=== PATIENT | male | born 1935 | race Caucasian/White ===

== ENCOUNTER 2017-06-04 22:42 | Emergency (ER) | payer OTHER ==
[~2017-06-04] VITALS: Ht 175.3 cm; Wt 90.7 kg
[~2017-06-04 22:42] MED LIST: ACETAMINOPHEN-1 EAC1 PO; AMOXICILLIN500 M1 PO; ASA5UEC PO; AZITHROMYCIN 2250 MG PO; BAYER CHEWABLE81 MG PO; CIPRO HC OTIC S10 ML OTIC; COLACE100 MG PO; FINASTERIDE5 MG PO; FLOMAX0.4 MG PO; IBUPROFEN 800800 M1 PO; LASIX 20 MG TAB20 MG; LISINOPRIL20 MG PO; LOPRESSOR50 MG PO; MELATONIN3 MG PO; NIACIN500 MG PO; NORVASC5 MG; OMEPRAZOLE 20 M20 M1; OMEPRAZOLE 20 M20 M1 PO; PREDNISONE 20 M20 M1 PO; PROAIR RESPICL90 MCG IH; TOPROL XL50 MG PO; TURMERIC500 MG PO; VENTOLIN HFA 1818 GM INH; VITAMIN D-32000 UNIT PO; ZOCOR40 MG PO
[2017-06-04 23:21] LABS: ABSOLUTE EOSINOPHILS 0.2 thou/uL (0.0-0.7); ABSOLUTE LYMPHOCYTES 1.2 thou/uL (0.8-5.3); ABSOLUTE MONOCYTES 0.5 thou/uL (0.0-1.2); ABSOLUTE NEUTROPHILS 6.9 thou/uL (1.6-8.1); BASOPHILS 0.5 %; EOSINOPHILS 2.1 %; HEMATOCRIT 40.3 % (42.0-52.0); HEMOGLOBIN 13.2 gm/dL (14.0-18.0); LYMPHOCYTES 13.6 %; MCH 27.9 pg (26.0-34.0); MCHC 32.7 g/dL (28.0-37.0); MCV 85.2 fL (80.0-100.0); MONOCYTES 6.1 %; MPV 8.9 fl. (7.2-11.1); NUCLEATED RBCS 0 /100WBC; PLATELET COUNT* 154 thou/uL (150-400); POLYS 77.7 %; RBC 4.73 mil/uL (4.50-6.00); RDW-CV 15.6 % (10.5-14.5); WBC 8.8 thou/uL (4.0-11.0)
[2017-06-04 23:43] LABS: CALCIUM 8.6 mg/dL (8.5-10.1); CREATININE 1.1 mg/dL (0.6-1.3); POTASSIUM 3.9 mmol/L (3.5-5.1)
[2017-06-04 23:44] LABS: INR 1.1; PROTIME 10.5 Seconds (9.20-11.50)
[2017-06-04 23:48] LABS: ALBUMIN 3.9 g/dL (3.4-5.0); TOTAL BILIRUBIN 0.3 mg/dL (<0.1-1.0); TOTAL PROTEIN 6.3 g/dL (6.4-8.2)
[2017-06-05] MEDS ORDERED: FLAGYL500 MG PO (01:19)
[2017-06-05] MEDS ORDERED: HYDROCODONE-AP1 EAC6 PO (01:19)
[2017-06-05] MEDS ORDERED: CIPROFLOXACIN500 M1 PO (01:19)
[2017-06-05] MEDS ORDERED: ZOFRAN ODT4 MG PO (01:19)
[2017-06-05 01:43] VITALS: BP 169/79
--- NOTE | 2017-06-05 18:07 | EKG ---
[place] [address] ELECTROCARDIOGRAM REPORT Name: TONI SCHREIBER [id number] Admission: 06/04/17 Attend Phys: Discharge: 06/05/17 Date of : 35 Report #: [id number] THIS REPORT FOR: //name// [facility] ED Test Date: 2017-06-04 Test Time: 22:55:26 Pat Name: TONI SCHREIBER Department: Room: Gender: Junior Network Engineer: ZAID Oconnor : 1935 Requested By: Adalgisa Douglas Order Number: [id number] MD: Dmitri Quan Measurements Intervals [place] Rate: 69 P: 39 CT: 155 QRS: 258 QRSD: 156 T: 86 QT: 427 QTc: 458 Interpretive Statements Atrial-sensed ventricular-paced complexes; rare pvc's No further analysis attempted due to paced rhythm Compared to ECG 06/08/2016 09:44:59 No significant changes Electronically Signed On 06-05-2017 18:07:45 CDT by Dmitri Quan [email or web address] <ELECTRONICALLY SIGNED> By: Dmitri Quan MD, [facility] 06/05/17 1807 2255 2255 Dmitri Quan MD, [facility] /EPI
--- NOTE | 2017-06-05 18:08 | EKG ---
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 Oconnor : 1935 Requested By: Adalgisa Douglas Order Number: [id number] MD: Dmitri Quan Measurements Intervals [place] Rate: 62 P: 155 MS: 203 QRS: 251 QRSD: 193 T: 76 QT: 483 QTc: 491 Interpretive Statements A-V dual-paced complexes No further analysis attempted due to paced rhythm Compared to ECG 06/08/2016 09:44:59 No significant changes Electronically Signed On 06-05-2017 18:08:29 CDT by Dmitri Quan [email or web address] <ELECTRONICALLY SIGNED> By: Dmitri Quan MD, [facility] 06/05/17 1808 31 31 Dmitri Quan MD, FAC /EPI
== END 2017-06-05 01:48 | disposition home or self-care (01) ==
LOC: M.ERS 22:42
PROVIDERS: Emergency Medicine
DX: K52.9 Noninfective gastroenteritis and colitis, unspecified (principal); F10.99 Alcohol use, unspecified with unspecified alcohol-induced disorder; I10 Essential (primary) hypertension; Z87.891 Personal history of nicotine dependence; Z88.8 Allergy status to other drugs, medicaments and biological substances; Z95.0 Presence of cardiac pacemaker; Z98.890 Other specified postprocedural states

== ENCOUNTER 2017-10-12 11:42 | Observation (INO) | payer OTHER ==
[~2017-10-12] VITALS: Ht 175.3 cm; Wt 89.8 kg
[~2017-10-12 11:42] MED LIST changes: +CIPROFLOXACIN500 M1 PO; +FLAGYL500 MG PO; +HYDROCODONE-AP1 EAC6 PO; +ZOFRAN ODT4 MG PO
[2017-10-12 11:50] VITALS: BP 141/74
[2017-10-12] MEDS ORDERED: IBUPROFEN 800800 M1 PO (12:02)
[2017-10-12] MEDS ORDERED: LASIX 20 MG TAB20 MG PO (12:02)
[2017-10-12] MEDS ORDERED: FLONASE 0.05%50 MCG NASAL (12:03)
[2017-10-12] MEDS ORDERED: PROBIOTIC1 EAC1 PO (12:03)
[2017-10-12 12:22] LABS: HEMATOCRIT 40.9 % (42.0-52.0); HEMOGLOBIN 13.2 gm/dL (14.0-18.0); MCH 27.6 pg (26.0-34.0); MCHC 32.3 g/dL (28.0-37.0); MCV 85.4 fL (80.0-100.0); MPV 8.7 fl. (7.2-11.1); NUCLEATED RBCS 0 /100WBC; PLATELET COUNT* 151 thou/uL (150-400); RBC 4.79 mil/uL (4.50-6.00); RDW-CV 15.9 % (10.5-14.5); WBC 5.5 thou/uL (4.0-11.0)
[2017-10-12 12:26] LABS: ANION GAP 6 mmol/L (7-16); BUN 17 mg/dL (7-18); CHLORIDE 103 mmol/L (98-107); CO2 26 mmol/L (21-32); CREATININE 1.3 mg/dL (0.6-1.3); GLUCOSE 117 mg/dL (70-99); POTASSIUM 4.3 mmol/L (3.5-5.1); SODIUM 135 mmol/L (136-145)
[2017-10-12 12:28] LABS: APTT 25.6 Seconds (25.0-31.3); INR 1.1; PROTIME 10.7 Seconds (9.20-11.50)
[2017-10-12 12:33] LABS: ALBUMIN 3.7 g/dL (3.4-5.0); ALKALINE PHOSPHATASE 86 U/L (46-116); LIPASE 142 U/L (73-393); SGOT 21 U/L (15-37); SGPT 22 U/L (30-65); TOTAL BILIRUBIN 0.7 mg/dL (<0.1-1.0); TOTAL PROTEIN 6.5 g/dL (6.4-8.2); TROPONIN-I LEVEL <0.06 ng/mL (<0.06)
[2017-10-12 13:06] LABS: ABSOLUTE EOSINOPHILS 0.1 thou/uL (0.0-0.7); ABSOLUTE LYMPHOCYTES 1.1 thou/uL (0.8-5.3); ABSOLUTE MONOCYTES 0.3 thou/uL (0.0-1.2); PLATELET ESTIMATE ADEQUATE
[2017-10-12 13:47] LABS: URINE BILIRUBIN NEGATIVE (Negative); URINE BLOOD NEGATIVE (Negative); URINE CLARITY CLEAR; URINE COLOR YELLOW; URINE GLUCOSE-RANDOM NEGATIVE (Negative); URINE KETONES NEGATIVE (Negative); URINE LEUKOCYTES-REFLEX NEGATIVE (Negative); URINE NITRITE-REFLEX NEGATIVE (Negative); URINE PROTEIN NEGATIVE (Negative); URINE SPECIFIC GRAVITY 1.015 (1.005-1.030); URINE UROBILINOGEN 0.2 E.U./dl (0.2-1.0)
--- NOTE | 2017-10-12 14:33 | NUR ---
REPORT GIVEN TO AIDEN, WILL TRANSFER PT TO FLOOR
[2017-10-12 14:42] VITALS: BP 147/67
--- NOTE | 2017-10-12 16:44 | EKG ---
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: : 1935 Requested By: Cy Dacosta Order Number: [id number] MD: Ok Baumann Measurements Intervals [place] Rate: 68 P: 144 DC: 124 QRS: -49 QRSD: 199 T: 143 QT: 491 QTc: 523 Interpretive Statements Ventricular-paced complexes No further analysis attempted due to paced rhythm Compared to ECG 06/04/2017 23:32:31 pvc no longer noted Electronically Signed On 10-12-2017 16:44:38 CDT by Ok Baumann [email or web address] <ELECTRONICALLY SIGNED> By: Ok Baumann MD, [facility] 10/12/17 1644 1203 1203 Ok Baumann MD, [facility] /EPI
--- NOTE | 2017-10-12 19:39 | NUR ---
PT ARRIVED TO ROOM 204 AT APPROX 1450, ORIENTED TO ROOM AND STAFF. ADMISSION HX AND ASSESMENT DONE CHARTED. VSS, SR/BBB ON THE MONITOR. PT SPOKE TO DR LALA, NO NEW ORDERS AT THIS TIME. HOME MEDS ORDERED. PT INSTRUCTED TO CALL STAFF FOR HELP AMBULATING DUE TO RECENT FALL. PT VERBALIZED UNDERSTANDING. REPORT GIVEN TO ONCOMING RN, JENNIFER
[2017-10-12 20:00] VITALS: BP 136/70
[2017-10-12 23:45] VITALS: BP 131/71
[2017-10-13 04:00] VITALS: BP 155/84
--- NOTE | 2017-10-13 04:46 | NUR ---
ASSUMED PT CARE AT 1930, PT IS A&0X4, PT IS TRACING NSR BBB ON THE MONITOR, ON RA SATTING MID TO HIGH 90'S. PT DENIES ANY PAIN OR NEEDS AT THIS TIME. PT IS UP STB TO THE BR. BED IN LOW POSITION, CALL LIGHT IN REACH, BED IN LOW POSITION, CALL LIGHT IN REACH, BED ALARM ON, YELLOW ARM BAND AND SOCKS IN PLACE. HOURLY ROUNDING COMPLETED FOR PT SAFETY.
[2017-10-13 08:00] VITALS: BP 143/63
[2017-10-13 11:42] VITALS: BP 143/63
--- NOTE | 2017-10-13 12:42 | NUR ---
DISCHARGE NOTE - IV REMOVED. NO PROBLEMS. BELONGINGS SENT WITH PT. NO QUESTIONS REGARDING DISCHARGE PAPERS. PRESENT AT BEDSIDE.
--- NOTE | 2017-11-02 10:49 | CON ---
[address] [address] CONSULTATION Name: TONI SCHREIBER Room: [address] Isaac Martínez#: [id number] Admission: 10/12/17 Attend Phys: Pino Richards Discharge: 10/13/17 Date of : 35 Report #: [id number] THIS REPORT FOR: //name// CC: Aly Lorenzo DATE OF SERVICE: 10/12/2017 PRIMARY PRODUCT DESIGN MANAGER: Ok Baumann MD, [facility]. REASON FOR CONSULTATION: Syncope. PRIMARY CARE PHYSICIAN: Aly Cota MD. HISTORY OF PRESENT ILLNESS: The patient is an 82-year-old man with history of coronary artery disease and pacemaker, was at [facility] and he had been having some bowel issues over the last week or so and had been on a laxative. He apparently had 2 loose stools at [facility] and after the 2nd one, he became diaphoretic, hot, sweaty, possibly nauseous to throw up, but did not. He then fell down and did not hit his head. He had briefly lost his consciousness. By the time he got to the Emergency Room, he was feeling fine. He presents in a sinus rhythm. He does have a conduction abnormality. He has some occasional flutter sensation on his left chest, which occurs at rest, nonexertional. He has chronic shortness of breath and he is going to be evaluated with an outpatient stress test, which was ordered by our nurse practitioner earlier this week when she has seen him for a routine followup visit. He presents with stable hemodynamics. There were no changes to his blood pressure medications. He had been on [id number]-[id number] laxatives. He recently had an endoscopy, which was apparently unremarkable. PAST MEDICAL HISTORY: He has a history of prior bypass; permanent pacemaker; hypertension; hyperlipidemia; carotid artery disease, nonobstructive; bladder cancer. HOME MEDICATIONS: Include amlodipine 5 mg, aspirin, Colace 200 mg daily, Proscar 5 mg daily, Flonase inhaler, Prinivil 40 mg daily, metoprolol 50 mg p.o. b.i.d., Prilosec 40 mg daily, Zocor 40 mg daily, and tamsulosin 0.4 mg daily. SOCIAL HISTORY: He is nonsmoker. [place] [address] CONSULTATION Name: TONI SCHREIBER Room: [address] Isaac Martínez#: [id number] Admission: 10/12/17 Attend Phys: Pino Richards Discharge: 10/13/17 Date of : 35 Report #: [id number] PAST SURGICAL HISTORY: No recent surgeries. His bypass surgery was in 2002. FAMILY HISTORY: Positive for heart disease. ALLERGIES: HE HAS ALLERGIES TO NITROGLYCERIN, TERAZOSIN, AND VERAPAMIL. REVIEW OF SYSTEMS: GENERAL: No fevers or chills. PULMONARY: No wheezing or cough. CARDIOVASCULAR: No chest pain, no palpitations, no orthopnea, no PND. SKIN: No rashes. HEMATOLOGIC: No anemia or bleeding disorders. RENAL: No history of kidney failure. PHYSICAL EXAMINATION: VITAL SIGNS: Blood pressure is 147/67, pulse is 66, temperature is 36.4, weight is 91.6 kg. GENERAL: This is a pleasant, moderately obese, elderly male. He is pleasant, in no apparent distress, sitting on the edge of the bed. HEENT: Face: There is no facial asymmetry. Eyes: EOMs intact, no scleral icterus. NECK: Supple. There is no jugular venous distention. Upstrokes are normal. I cannot hear bruits. CARDIOVASCULAR: Regular. I cannot hear a murmur. LUNGS: Clear to auscultation bilaterally. ABDOMEN: Soft, nontender, nondistended. EXTREMITIES: No peripheral edema. LABORATORY DATA: Carotid Dopplers on 08/31/2016 showed no evidence of flow limiting stenosis in either carotid artery. Electrocardiogram shows a sinus rhythm, V paced. Hemoglobin is 13.2, white blood cell count 5.5, platelet count is 151,000. Sodium is 135, potassium is 4.3, BUN is 17, creatinine is 1.3. Troponin I is 0.06. BNP is 407. IMAGING: CT scan of the brain shows no acute process. IMPRESSION: 1. Syncopal episode. I suspect this is vasovagal based on the historical data. He presents hemodynamically stable with stable telemetry. We will continue with current medical therapy. I suspect this was similar to a micturition syncope type etiology. I do not see the need to alter his medical therapy. 2. Permanent pacemaker. His telemetry seems to be stable. We will continue telemetry monitoring overnight. 3. Coronary artery disease. His symptoms are atypical for angina. He is scheduled for an outpatient nuclear stress test. I do not see the need for him to stay in the hospital for this. [address] [address] CONSULTATION Name: TONI SCHREIBER Room: [address] Isaac Martínez#: [id number] Admission: 10/12/17 Attend Phys: Pino Richards Discharge: 10/13/17 Date of : 35 Report #: [id number] 4. Hypertension. We will continue to monitor his blood pressure closely. 5. Status post coronary artery bypass grafting as noted above. We will continue current medical therapy. We will check serial cardiac troponins. Initial one is normal. <ELECTRONICALLY SIGNED> By: Rommel Reid MD, FACC 11/02/17 1049 1619 1842Rommel Reid MD, FACC /nt
== END 2017-10-13 12:40 | disposition home or self-care (01) ==
LOC: M.ERS 11:42 → M.2W 13:19 → M.TBA-ER 13:19 → M.2W 15:09
PROVIDERS: Emergency Medicine; ADMIT Internal Medicine
DX: S40.811A Abrasion of right upper arm, initial encounter (principal); R55 Syncope and collapse; I25.10 Atherosclerotic heart disease of native coronary artery without angina pectoris; I10 Essential (primary) hypertension; I25.2 Old myocardial infarction; W18.39XA Other fall on same level, initial encounter; Y93.89 Activity, other specified; Y92.89 Other specified places as the place of occurrence of the external cause; Y99.8 Other external cause status; Z95.5 Presence of coronary angioplasty implant and graft; Z95.0 Presence of cardiac pacemaker; Z98.890 Other specified postprocedural states; Z90.49 Acquired absence of other specified parts of digestive tract

== ENCOUNTER → 2017-12-26 | Outpatient (CLI) | payer OTHER ==
[~2017-12-26] MED LIST changes: +FLONASE 0.05%50 MCG NASAL; +LASIX 20 MG TAB20 MG PO; +PROBIOTIC1 EAC1 PO
[2017-12-26 15:41] LABS: CALCIUM 9.2 mg/dL (8.5-10.1); CREATININE 1.2 mg/dL (0.6-1.3); POTASSIUM 4.6 mmol/L (3.5-5.1)
== END ==
LOC: M.LAB 14:58
PROVIDERS: Nurse Practitioner
DX: I25.5 Ischemic cardiomyopathy (principal); R53.83 Other fatigue; I10 Essential (primary) hypertension; Z87.891 Personal history of nicotine dependence

== ENCOUNTER → 2018-01-03 | Outpatient (CLI) | payer OTHER ==
[2018-01-03 09:29] LABS: CALCIUM 8.9 mg/dL (8.5-10.1); POTASSIUM 4.3 mmol/L (3.5-5.1)
== END ==
LOC: M.LAB 09:00
PROVIDERS: Nurse Practitioner
DX: R06.00 Dyspnea, unspecified (principal)

== ENCOUNTER → 2018-01-17 | Outpatient (CLI) | payer OTHER ==
--- NOTE | 2018-01-24 19:20 | SLEEP ---
[address] [address] SLEEP STUDY REPORT Name: SCHREIBERANASABINE BRUNNER Room: [facility]#: [id number] Admission: 01/17/18 Attend Phys: Meredith Ayers RN Discharge: Date of : 35 Report #: [id number] THIS REPORT FOR: //name// CC: Aly Ayers This study has been reviewed in its entirety by a board certified sleep specialist DATE OF SERVICE: 01/18/2018 HOME SLEEP STUDY. There is no attending physician. The patient is 82 years old who weighs 200 pounds and is 5 feet 9 inches tall with a BMI of 29.5. The patient's [place] score was 6. The patient underwent home sleep study performed at [facility]. Total recording time was 622 minutes. During the night study, the patient had 16 obstructive apneas, 1 central and no mixed apneas and the patient had 93 hypopneas. The patient's apnea hypopnea index was 10.6 per hour, supine index was also 10.6 per hour. Nocturnal oximetry study revealed an average oxygen saturation of 90%, with a lowest of 77%. 190 minutes were spent at oxygen saturation less than 90%. EKG monitoring revealed mean heart rate of 67 beats per minute with a maximum of 196 beats per minute, which was an artifact. IMPRESSION: 1. Mild sleep apnea-hypopnea syndrome at an AHI of 10.6 per hour. 2. Nocturnal hypoxia secondary to obstructive sleep apnea and hypoventilation. RECOMMENDATIONS: 1. The patient's sleep apnea is mild. I would recommend weight loss as initial form of treatment. 2. If the patient continues to remain symptomatic despite weight loss, then consider treatment with either oral appliance or a trial of CPAP titration. 3. If the patient does not undergo CPAP titration study, then the patient would benefit from 1 liter of oxygen at nighttime. 4. Avoid FUN [place]SE [place] [address] SLEEP STUDY REPORT Name: SCHREIBERTONI Room: [facility]#: [id number] Admission: 01/17/18 Attend Phys: Meredith Ayers RN Discharge: Date of : 35 Report #: [id number] 5. Cautioned regarding driving until symptoms of sleep apnea resolve with the above recommendations. <ELECTRONICALLY SIGNED> By: Zach Paul MD 01/24/18 1920 1612 1704Alefty Paul MD /nt
== END ==
LOC: M.SLEEPLAB 01-16 21:00
DX: G47.30 Sleep apnea, unspecified (principal); R09.02 Hypoxemia; I25.5 Ischemic cardiomyopathy; R53.83 Other fatigue

== ENCOUNTER 2018-05-05 08:26 | Emergency (ER) | payer OTHER ==
[~2018-05-05] VITALS: Ht 175.3 cm; Wt 88.5 kg
[2018-05-05] MEDS ORDERED: COREG6.25 MG PO (08:40)
[2018-05-05] MEDS ORDERED: SPIRONOLACTONE25 M1 PO (08:40)
[2018-05-05] MEDS ORDERED: AZITHROMYCIN 2250 MG PO (09:26)
[2018-05-05] MEDS ORDERED: TUSSIONEX PENN115 ML PO (09:28)
[2018-05-05 09:39] VITALS: BP 148/60
== END 2018-05-05 09:40 | disposition home or self-care (01) ==
LOC: M.ERS 08:26
DX: J40 Bronchitis, not specified as acute or chronic (principal); I10 Essential (primary) hypertension; Z87.891 Personal history of nicotine dependence; Z88.8 Allergy status to other drugs, medicaments and biological substances; Z90.89 Acquired absence of other organs; Z95.0 Presence of cardiac pacemaker

== ENCOUNTER → 2018-08-29 | Outpatient (CLI) | payer OTHER ==
[~2018-08-29] MED LIST changes: +COREG6.25 MG PO; +SPIRONOLACTONE25 M1 PO; +TUSSIONEX PENN115 ML PO
[2018-08-29 13:03] LABS: HEMATOCRIT 37.4 % (42.0-52.0); HEMOGLOBIN 12.5 gm/dL (14.0-18.0); MCH 28.7 pg (26.0-34.0); MCHC 33.3 g/dL (28.0-37.0); MCV 86.2 fL (80.0-100.0); MPV 8.5 fl. (7.2-11.1); NUCLEATED RBCS 0 /100WBC; PLATELET COUNT* 169 thou/uL (150-400); RBC 4.34 mil/uL (4.50-6.00); RDW-CV 15.7 % (10.5-14.5); WBC 5.6 thou/uL (4.0-11.0)
[2018-08-29 13:22] LABS: ALBUMIN 3.7 g/dL (3.4-5.0); ALKALINE PHOSPHATASE 85 U/L (46-116); ANION GAP 8 mmol/L (7-16); BUN 17 mg/dL (7-18); CALCIUM 8.8 mg/dL (8.5-10.1); CHLORIDE 103 mmol/L (98-107); CHOLESTEROL 110 mg/dL (<200); CO2 26 mmol/L (21-32); GLUCOSE 107 mg/dL (70-99); HDL CHOLESTEROL 37 mg/dL (>40); LDL CHOLESTEROL 42 mg/dL (<100); NT-PRO BRAIN NAT PEPTIDE 664 pg/mL (<300); POTASSIUM 4.2 mmol/L (3.5-5.1); SGOT 16 U/L (15-37); SGPT 22 U/L (30-65); SODIUM 137 mmol/L (136-145); TOTAL BILIRUBIN 0.5 mg/dL (<0.1-1.0); TOTAL PROTEIN 6.6 g/dL (6.4-8.2); TRIGLYCERIDE 159 mg/dL (<150); VLDL 32 mg/dL (<40)
[2018-08-29 13:25] LABS: SERUM ASSESSMENT Clear
[2018-08-29 14:05] LABS: ABSOLUTE BASOPHILS 0.1 thou/uL (0.0-0.2); ABSOLUTE EOSINOPHILS 0.1 thou/uL (0.0-0.7); ABSOLUTE LYMPHOCYTES 1.3 thou/uL (0.8-5.3); ABSOLUTE MONOCYTES 0.4 thou/uL (0.0-1.2); ABSOLUTE NEUTROPHILS 3.8 thou/uL (1.6-8.1); MICROCYTES 1+; PLATELET ESTIMATE ADEQUATE; TOXIC GRANULATION 1+
== END ==
LOC: M.LAB 12:28
PROVIDERS: Nurse Practitioner
DX: I25.5 Ischemic cardiomyopathy (principal); E78.5 Hyperlipidemia, unspecified

== ENCOUNTER → 2018-12-04 | Outpatient (CLI) | payer OTHER | LOC: M.RAD 10:59 | DX: M25.78 Osteophyte, vertebrae (principal); M48.061 Spinal stenosis, lumbar region without neurogenic claudication; I70.0 Atherosclerosis of aorta ==

== ENCOUNTER 2020-02-29 11:07 | Inpatient (IN) | payer MEDICARE ==
[~2020-02-29] VITALS: Ht 177.8 cm; Wt 88.7 kg
[2020-02-29 11:11] VITALS: BP 161/76
[2020-02-29 11:34] LABS: HEMATOCRIT 38.8 % (42.0-52.0); HEMOGLOBIN 12.7 gm/dL (14.0-18.0); MCH 28.3 pg (26.0-34.0); MCHC 32.8 g/dL (28.0-37.0); MCV 86.3 fL (80.0-100.0); MPV 8.4 fl. (7.2-11.1); NUCLEATED RBCS 0 /100WBC; PLATELET COUNT* 166 thou/uL (150-400); RBC 4.49 mil/uL (4.50-6.00); RDW-CV 16.2 % (10.5-14.5); WBC 8.4 thou/uL (4.0-11.0)
[2020-02-29 11:42] LABS: CALCIUM 8.2 mg/dL (8.5-10.1); POTASSIUM 4.6 mmol/L (3.5-5.1)
[2020-02-29 11:44] LABS: PROTIME 10.3 Seconds (9.20-11.50)
[2020-02-29 11:47] LABS: ALBUMIN 3.8 g/dL (3.4-5.0); TOTAL BILIRUBIN 0.7 mg/dL (<0.1-1.0)
[2020-02-29 12:12] LABS: ABSOLUTE BASOPHILS 0.1 thou/uL (0.0-0.2); ABSOLUTE EOSINOPHILS 0.1 thou/uL (0.0-0.7); ABSOLUTE LYMPHOCYTES 1.6 thou/uL (0.8-5.3); ABSOLUTE MONOCYTES 0.3 thou/uL (0.0-1.2); ABSOLUTE NEUTROPHILS 6.4 thou/uL (1.6-8.1); ANISOCYTOSIS Occasional; PLATELET ESTIMATE ADEQUATE
--- NOTE | 2020-02-29 13:19 | NUR ---
SEE CODE STROKE FORM
[2020-02-29 14:36] VITALS: BP 125/50
[2020-02-29 15:30] VITALS: BP 130/63
--- NOTE | 2020-02-29 15:30 | NUR ---
ER ADMIT TO ROOM 230 VIA CART. ADMISSION ASSESSMENT COMPLETE DEFER TO COMPUTER CHARTING. SALES CENTER MANAGER TRACKING SR. ALERT ORIENTED. DENIES DIZZINESS, HEADACHE OR ANY DISCOMFORT AT THIS TIME. NIH SCORE 1 - PATIENT REPORTING HAVING LEFT LEG WEAKNESS AND NUMBNESS ON LOWER OUTSIDE LEG - CONTINUES TO STATE THIS IS NOT NEW FOR HIM HAS HAD SINCE PREIVOUS BACK SURGERY. ORIENTED TO ROOM/CALL LIGHT AND PLAN OF CARE. INSTRUCTED TO CALL NURSING WHEN NEEDING TO GET OUT OF BED FOR SAFETY AND REPORT ANY CHANGE IN CONDITION PROMPTLY TO NURSING. CALL LIGHT WITHIN REACH, WILL MONITOR.
[2020-02-29 20:00] VITALS: BP 127/58
[2020-03-01] VITALS: BP 114/45
[2020-03-01 04:00] VITALS: BP 139/74
[2020-03-01 05:56] LABS: CHOLESTEROL 120 mg/dL (<200); HDL CHOLESTEROL 40 mg/dL (>40); LDL CHOLESTEROL 68 mg/dL (<100); TRIGLYCERIDE 63 mg/dL (<150); VLDL 13 mg/dL (<40)
[2020-03-01 06:06] LABS: SERUM ASSESSMENT Clear
[2020-03-01 07:07] LABS: GLYCOHEMOGLOBIN (HGB A1C) 5.7 % (4.8-5.6)
[2020-03-01 08:00] VITALS: BP 132/69
--- NOTE | 2020-03-01 12:45 | EKG ---
[place] [address] ELECTROCARDIOGRAM REPORT Name: SCHREIBERTONI Room: [address] ADM IN M.R.#: [id number] Admission: 02/29/20 Attend Phys: Carin Estrella, Discharge: Date of : 35 Date of Service: 02/29/20 1113 Report #: [id number] THIS REPORT FOR: //name// [facility] ED Test Date: 2020-02-29 Test Time: 11:13:37 Pat Name: TONI SCHREIBER Department: Room: [facility] Gender: M Investment Representative: JULI : 1935 Requested By: Nhan Malik Order Number: [id number] MD: Bharathi Strong Measurements Intervals [place] Rate: 68 P: 0 WI: 56 QRS: -69 QRSD: 188 T: 131 QT: 454 QTc: 483 Interpretive Statements Ventricularly paced rhythm compared to ECG 10/12/2017 12:03:08 Short [place] interval now present No changes noted Electronically Signed On 03-01-2020 12:45:01 ASSOCIATE ENTERTAINMENT EDITOR by Bharathi Strong [email or web address] <ELECTRONICALLY SIGNED> By: Bharathi Strong MD, FACC 03/01/20 1245 1113 1113 Bharathi Strong MD, FAC /EPI
[2020-03-01 13:25] VITALS: BP 124/60
[2020-03-01 20:18] VITALS: BP 101/65
[2020-03-02] MEDS ORDERED: FOLIC ACID1 MG PO (07:40)
[2020-03-02 08:00] VITALS: BP 118/61
--- NOTE | 2020-03-02 09:49 | NUR ---
CM SPOKE TO THE PT DISCUSS CM ASSESSMENT. PT A&O, INDEPENDENT WITH ADL'S, ACTIVE AND DRIVES. PT RESIDES AT HOME WITH SPOUSE. PT USES 0 DME. PT HAS 0 HX OF HH OR SNF. PT INFORMS THAT HE IS HOPEFUL TO D/C HOME TODAY. NO D/C PLANNING NEEDS ANTICIPATED. CM WILL REMAIN AVAILABLE TO ASSIST AND FOLLOW NEEDED.
[2020-03-02 11:21] VITALS: BP 118/61
--- NOTE | 2020-03-02 14:31 | 2DMMODE ---
[place] [address] 2 D/M-MODE ECHOCARDIOGRAM Name: ABDOULTONI BRUNNER Room: [address] IN Claudio#: [id number] Admission: 02/29/20 Attend Phys: Carin Estrella, Discharge: Date of : 35 Date of Service: 03/02/20 1431 Report #: [id number] THIS REPORT FOR: cc: Xavi Kincaid,Xavi Simmons,Ok Linares MD [facility] ~ APPROVED REPORT Study performed: 03/02/2020 09:39:36 EXAM: Comprehensive 2D, Doppler, and color-flow Echocardiogram Patient Location: In-Patient Room #: 230 Status: routine BSA: 2.09 HR: 91 bpm BP: 101/65 mmHg Rhythm: NSR Other Information Study Quality: Good Indications CVA/TIA Echo Enhancing Agent Indication: Rule out Shunt Agent(s) / Amount(s) Used: Agitated Saline 10 cc 2D Dimensions IVSd: 12.90 (7-11mm) LVOT Diam: 20.84 (18-24mm) LVDd: 49.68 mm PWd: 9.73 (7-11mm) Ascending Ao: 32.61 (22-36mm) LVDs: 35.45 (25-40mm) Aortic Root: 34.36 mm Volumes Left Atrial Volume (Systole) LA ESV Index: 25.40 mL/m2 Aortic Valve AoV Peak Salvatore.: 1.08 m/s AO Peak Gr.: 4.66 mmHg LVOT Max P.47 mmHg AO Mean Gr.: 2.76 mmHg LVOT Mean P.65 [place] [address] 2 D/M-MODE ECHOCARDIOGRAM Name: TONI SCHREIBER Room: [address] IN ..#: [id number] Admission: 02/29/20 Attend Phys: Carin Estrella, Discharge: Date of : 35 Date of Service: 03/02/20 1431 Report #: [id number] LVOT Max V: 0.93 m/s AO V2 VTI: 21.38 cm LVOT Mean V: 0.59 m/s HARMONY (VTI): 3.11 cm2 LVOT V1 VTI: 19.51 cm Mitral Valve E/A Ratio: 0.61 MV Decel. Time: 337.73 ms MV E Max Salvatore.: 0.48 m/s MV PHT: 97.94 ms MVA (PHT): 2.25 cm2 TDI E/Lateral E': 5.33 E/Medial E': 6.86 Medial E' Salvatore.: 0.07 m/s Lateral E' Salvatore.: 0.09 m/s Pulmonary Valve PV Peak Salvatore.: 0.97 m/s PV Peak Gr.: 3.80 mmHg Tricuspid Valve RAP Estimate: 5.00 mmHg TR Peak Gr.: 22.67 mmHg RVSP: 27.00 mmHg PA Pressure: 27.00 mmHg Left Ventricle The left ventricle is normal size. paradoxical septal motion consistent with a paced rhythm There is normal left ventricular wall thickness. Left ventricular systolic function is normal. The left ventricular ejection fraction is within the normal range. LVEF is 50-55%. Grade I - abnormal relaxation pattern. Right Ventricle Right ventricle is dilated. The right ventricular systolic function is normal. Pacemaker lead is present in the right ventricle. Atria The left atrium size is normal. Interatrial septum is intact without evidence of ASD or PFO. Right atrium is dilated. Aortic Valve The aortic valve is normal in structure. No aortic regurgitation is present. There is no aortic valvular stenosis. Mitral Valve The mitral valve is normal in structure. There is no mitral valve regurgitation noted. No evidence [place] [address] 2 D/M-MODE ECHOCARDIOGRAM Name: SCHREIBERTONI Room: [address] [place] .R.#: [id number] Admission: 02/29/20 Attend Phys: Carin Estrella, Discharge: Date of : 35 Date of Service: 03/02/20 1431 Report #: [id number] Tricuspid Valve The tricuspid valve is normal in structure. Mild tricuspid regurgitation. No pulmonary hypertension. Pulmonic Valve The pulmonary valve is normal in structure. There is mild pulmonic valvular regurgitation. Great Vessels The aortic root is normal in size. IVC is not well visualized. Pericardium There is no pericardial effusion. <Conclusion> LVEF is 50-55%. Interatrial septum is intact without evidence of ASD or PFO. <ELECTRONICALLY SIGNED> By: Ok Baumann MD, FACC 03/02/20 1431 1431 143 Ok Baumann MD, FACC /INF
== END 2020-03-02 11:30 | disposition home or self-care (01) | DRG 149 ==
LOC: M.ERS 11:07 → M.TBA-ER 12:14 → M.2W 12:14
PROVIDERS: Emergency Medicine Emergency Medical Services; ADMIT Internal Medicine; ATTEND Internal Medicine
DX: H81.11 Benign paroxysmal vertigo, right ear (principal); H83.2X1 Labyrinthine dysfunction, right ear; H72.91 Unspecified perforation of tympanic membrane, right ear; I25.10 Atherosclerotic heart disease of native coronary artery without angina pectoris; G89.29 Other chronic pain; M54.9 Dorsalgia, unspecified; E53.8 Deficiency of other specified B group vitamins; I10 Essential (primary) hypertension; Z20.828 Contact with and (suspected) exposure to other viral communicable diseases; I25.2 Old myocardial infarction; Z95.0 Presence of cardiac pacemaker; Z85.51 Personal history of malignant neoplasm of bladder; Z95.1 Presence of aortocoronary bypass graft; Z79.82 Long term (current) use of aspirin; Z79.899 Other long term (current) drug therapy; Z88.8 Allergy status to other drugs, medicaments and biological substances; Z87.891 Personal history of nicotine dependence

== ENCOUNTER 2020-08-03 00:41 | Emergency (ER) | payer MEDICARE ==
[~2020-08-03] VITALS: Ht 175.3 cm; Wt 88.5 kg
[~2020-08-03 00:41] MED LIST changes: +FOLIC ACID1 MG PO
[2020-08-03 01:24] LABS: CALCIUM 8.6 mg/dL (8.5-10.1); POTASSIUM 4.2 mmol/L (3.5-5.1)
[2020-08-03 01:28] LABS: HEMATOCRIT 36.8 % (42.0-52.0); HEMOGLOBIN 12.2 gm/dL (14.0-18.0); MPV 8.5 fl. (7.2-11.1); NUCLEATED RBCS 0 /100WBC
[2020-08-03 01:31] LABS: PROTIME 10.8 Seconds (9.20-11.50)
[2020-08-03 01:34] LABS: ALBUMIN 3.7 g/dL (3.4-5.0); MAGNESIUM 2.2 mg/dL (1.8-2.4); TOTAL BILIRUBIN 0.5 mg/dL (<0.1-1.0); TOTAL PROTEIN 6.6 g/dL (6.4-8.2)
[2020-08-03 01:36] LABS: MCH 28.5 pg (26.0-34.0); MCV 86.3 fL (80.0-100.0); PLATELET COUNT* 150 thou/uL (150-400); RBC 4.26 mil/uL (4.50-6.00); RDW-CV 16.1 % (10.5-14.5); WBC 6.1 thou/uL (4.0-11.0)
[2020-08-03 02:39] LABS: ABSOLUTE BASOPHILS 0.2 thou/uL (0.0-0.2); ABSOLUTE EOSINOPHILS 0.5 thou/uL (0.0-0.7); ABSOLUTE LYMPHOCYTES 1.3 thou/uL (0.8-5.3); ABSOLUTE MONOCYTES 0.4 thou/uL (0.0-1.2); ABSOLUTE NEUTROPHILS 3.7 thou/uL (1.6-8.1); PLATELET ESTIMATE ADEQUATE
[2020-08-03 02:40] LABS: ANISOCYTOSIS 1+
[2020-08-03 04:07] VITALS: BP 179/113
--- NOTE | 2020-08-03 15:27 | EKG ---
[place] [address] ELECTROCARDIOGRAM REPORT Name: TONI SCHREIBER Room: [facility]#: [id number] Admission: 08/03/20 Attend Phys: Discharge: 08/03/20 Date of : 35 Date of Service: 08/03/20 0050 Report #: [id number] THIS REPORT FOR: //name// [facility] ED Test Date: 2020-08-03 Test Time: 00:50:58 Pat Name: TONI SCHREIBER Department: Room: Gender: Route Aide: : 1935 Requested By: Adalgisa Douglas Order Number: [id number] MD: Dmitri Quan Measurements Intervals [place] Rate: 67 P: -48 GA: 166 QRS: -51 QRSD: 178 T: 129 QT: 452 QTc: 478 Interpretive Statements Ventricular-paced complexes No further analysis attempted due to paced rhythm Compared to ECG 02/29/2020 11:13:37 No significant changes Electronically Signed On 08-03-2020 15:27:31 CDT by Dmitri Quan [email or web address] <ELECTRONICALLY SIGNED> By: Dmitri Quan MD, [facility] 08/03/20 1527 0050 0050 Dmitri Quan MD, [facility] /EPI
== END 2020-08-03 04:08 | disposition home or self-care (01) ==
LOC: M.ERS 00:41
PROVIDERS: Emergency Medicine
DX: I10 Essential (primary) hypertension (principal); Z87.891 Personal history of nicotine dependence; Z88.8 Allergy status to other drugs, medicaments and biological substances; Z90.89 Acquired absence of other organs

== ENCOUNTER → 2020-09-23 | Outpatient (CLI) | payer OTHER | LOC: M.ULTRA 10:26 | PROVIDERS: ATTEND Internal Medicine Cardiovascular Disease | DX: I65.22 Occlusion and stenosis of left carotid artery (principal) ==

== ENCOUNTER 2020-11-03 23:16 | Emergency (ER) | payer OTHER ==
[~2020-11-03] VITALS: Ht 175.3 cm; Wt 88.0 kg
[2020-11-03] MEDS ORDERED: NEURONTIN100 MG PO (23:46)
[2020-11-04] MEDS ORDERED: CLONIDINE HCL0.1 MG PO (00:31)
[2020-11-04 00:52] VITALS: BP 160/70
--- NOTE | 2020-11-04 11:06 | EKG ---
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 11/04/20 1106 2324 2324 Ok Baumann MD, [facility] /EPI
== END 2020-11-04 00:53 | disposition home or self-care (01) ==
LOC: M.ERS 23:16
DX: I10 Essential (primary) hypertension (principal); Z71.1 Person with feared health complaint in whom no diagnosis is made; Z87.891 Personal history of nicotine dependence; Z88.8 Allergy status to other drugs, medicaments and biological substances; Z79.899 Other long term (current) drug therapy; Z79.82 Long term (current) use of aspirin; Z95.5 Presence of coronary angioplasty implant and graft; Z98.890 Other specified postprocedural states